=== PATIENT | female | born 1935 | race Caucasian/White ===

== ENCOUNTER 2018-05-04 16:15 | Emergency (ER) | payer MEDICAID ==
[~2018-05-04] VITALS: Ht 162.6 cm; Wt 81.6 kg
[2018-05-04 16:30] VITALS: Ht 162.6 cm; Wt 81.6 kg
[2018-05-04 17:21] LABS: BASOPHIL % 0.4 % (0-2); PLATELET COUNT 254 x10^3mcL (130-400)
[2018-05-04 17:29] LABS: CALCIUM 8.7 mg/dL (8.5-10.1); CHLORIDE SERUM 105 mmol/L (98-107); CREATININE SERUM 0.9 mg/dL (0.6-1.0); GLUCOSE SERUM 160 mg/dL (74-106); POTASSIUM SERUM 3.5 mmol/L (3.5-5.1); SODIUM SERUM 139 mmol/L (136-145)
[2018-05-04 17:35] LABS: ALBUMIN 3.7 g/dL (3.4-5.0); ALKALINE PHOSPHATASE 103 U/L (46-116); ALT/SGPT 32 U/L (14-59); AST/SGOT 22 U/L (15-37); BILIRUBIN TOTAL 0.29 mg/dL (0.20-1.00); HDL CHOLESTEROL 36 mg/dL (40-60); MAGNESIUM 1.5 mg/dL (1.8-2.4); TOTAL PROTEIN, SERUM 7.8 g/dL (6.4-8.2)
[2018-05-04 17:36] LABS: CHOLESTEROL 96 mg/dL (<200)
[2018-05-04 20:56] VITALS: BP 128/65
== END 2018-05-04 20:56 | disposition home or self-care (01) ==
LOC: ED 16:15
PROVIDERS: Emergency Medicine
DX: R53.1 Weakness (principal); R42 Dizziness and giddiness; E83.42 Hypomagnesemia; I10 Essential (primary) hypertension; E11.9 Type 2 diabetes mellitus without complications; E78.00 Pure hypercholesterolemia, unspecified
CPT/HCPCS: J3475; Q0092

== ENCOUNTER 2018-07-21 21:41 | Inpatient (IN) | payer MEDICAID ==
[~2018-07-21] VITALS: Ht 160 cm; Wt 75.3 kg
[2018-07-21 22:11] VITALS: Ht 160 cm; Wt 75.3 kg
--- NOTE | 2018-07-21 23:27 | NUR ---
PT CAME INTO ER WITH DAUGHTER COMPLAINING OF DIZZINESS. PT STATED THAT SHE WAS GOING TO LAY IN BED WHEN SHE STARTED TO FEEL DIZZY. SHE SAID SHE HAS FELT THIS IN THE PAST. PT WAS NOT DOING ANYTHING DIFFERENT FROM HER DAILY ROUTINE. PT HARD OF HEARING. PT'S DAUGHTER STATED THAT THE LAST TIME SHE CAME TO THE ER FOR THE SAME ISSUE AND THAT SHE WAS TOLD THAT HER MOTHER HAD "HIGH POTASSIUM". WILL CONTINUE TO MONITOR.
[2018-07-22 00:03] LABS: CALCIUM 9.4 mg/dL (8.5-10.1); CHLORIDE SERUM 103 mmol/L (98-107); CREATININE SERUM 0.9 mg/dL (0.6-1.0); GLUCOSE SERUM 169 mg/dL (74-106); POTASSIUM SERUM 3.8 mmol/L (3.5-5.1); SODIUM SERUM 142 mmol/L (136-145)
[2018-07-22 00:12] LABS: ALKALINE PHOSPHATASE 93 U/L (46-116); ALT/SGPT 50 U/L (14-59); AMYLASE 37 U/L (25-115); AST/SGOT 30 U/L (15-37); BILIRUBIN TOTAL 0.3 mg/dL (0.20-1.00); LIPASE 144 IU/L (73-393); MAGNESIUM 1.6 mg/dL (1.8-2.4); TOTAL PROTEIN, SERUM 8.2 g/dL (6.4-8.2)
[2018-07-22 00:17] LABS: BASOPHIL % 0.2 % (0-2); PLATELET COUNT 238 x10^3mcL (130-400); RED CELL DISTRIBUTION WIDTH 14.2 % (11.5-14.5)
[2018-07-22] MEDS ORDERED: NEU300 (01:39)
[2018-07-22] MEDS ORDERED: METFORMIN HYDR500 M1 (01:39)
[2018-07-22] MEDS ORDERED: MECLIZINE HYDRO25 M1 (01:40)
[2018-07-22] MEDS ORDERED: NOR10 (01:40)
[2018-07-22] MEDS ORDERED: COZAAR100 MG (01:40)
[2018-07-22 01:41] LABS: T3 TOTAL 0.94 ng/mL
[2018-07-22] MEDS ORDERED: GOOD SENSE ASPI81 M3 (01:41)
[2018-07-22] MEDS ORDERED: TOPROL XL25 MG (01:41)
--- NOTE | 2018-07-22 02:00 | NUR ---
RECIEVED PT FROM ED ON GURNEY. ACCOMPANIED BY RN AND FAMILY. ADMITTED WITH CC OF N/V AND DIZZINESS. AMBULATED TO BED WITH ASSIST. REPORTS DIZZINESS WITH MOVEMENT. CHINESE SPEAKING ONLY. TRANSLATION PROVIDED BY [id number], SHAE. MS WITH NO TELE PER MD ORDERS. NO RESP DISTRESS OR CHEST PAIN. BREATHING 2L NC SPO2 98%. IV TO RT FOREARM INFUSING REMAINDER OF MAG SULFATE (INITIATED IN ED). ORIENTED TO DEVICES AND SURROUNDING. CALL LIGHT IN REACH AND BED ALARM ON.
[2018-07-22 02:19] LABS: FREE T4 0.97 ng/dL (0.76-1.46); FREE THYROXINE INDEX 2.5 ug/dL (1.4-4.5)
[2018-07-22 02:35] LABS: PHOSPHOROUS 4.3 mg/dL (2.5-4.9)
[2018-07-22 02:37] VITALS: BP 154/72
[2018-07-22 02:44] LABS: CHOLESTEROL/HDL RATIO 2.6
--- NOTE | 2018-07-22 05:24 | NUR ---
PT APPEARS TO BE SLEEPING COMFORTABLY. NO DISTRESS NOTED. BREATHING UNLABORED. RT FOREARM IV INTACT WITH NS@100 CC/HR INFUSING. DR. KEARNS CALLED REGARDING AUGUSTIN HUTCHINSON. AUGUSTIN HUTCHINSON ORDERED. CONT TO MONITOR.
--- NOTE | 2018-07-22 05:28 | NUR ---
I HAVE REVIEWED THE DATA COLLECTION BY JANETT (NAME): CATE ROSALES ENTERED ON (DATE/TIME): 07/22/17 0200 I CONCUR WITH THE DATA AND ANY EXCEPTIONS OR COMMENTS ARE LISTED BELOW:
[2018-07-22 06:18] VITALS: BP 136/67
[2018-07-22 07:07] LABS: BASOPHIL % 0.2 % (0-2); PLATELET COUNT 231 x10^3mcL (130-400); RED CELL DISTRIBUTION WIDTH 14.1 % (11.5-14.5)
[2018-07-22 07:14] LABS: CALCIUM 8.4 mg/dL (8.5-10.1); CARBON DIOXIDE 31.3 mmol/L (21-32); CHLORIDE SERUM 105 mmol/L (98-107); CREATININE SERUM 0.8 mg/dL (0.6-1.0); GLUCOSE SERUM 126 mg/dL (74-106); MAGNESIUM 2.2 mg/dL (1.8-2.4); PHOSPHOROUS 4.1 mg/dL (2.5-4.9); POTASSIUM SERUM 3.7 mmol/L (3.5-5.1); SODIUM SERUM 142 mmol/L (136-145)
--- NOTE | 2018-07-22 08:11 | NUR ---
AAO TIMES 4. MANZANITA. LUNGS CTA. NO SOB. O2 SAT ON 2L NC 100% BS'S HYPERACTIVE. NO C/O DIARRHEA AT THIS TIME. PERIPHERAL PULSES PALPABLE. TRACE EDEMA BLE. RIGHT WRIST IV SITE PATENT, CDI. COOPERATIVE. NO C/O PAIN. NO SOB.
[2018-07-22 08:47] VITALS: BP 153/67
[2018-07-22 14:29] VITALS: BP 153/67
--- NOTE | 2018-07-22 14:47 | NUR ---
REMOVED HER IV ANGIO INTACT, SITE CDI. GAVE HER AND HER DAUGHTER DISCHARGE INSTRUCTIONS, NO PRESCRIPTION. BOTH UNDERSTOOD THE INSTRUCTIONS AND TEACHING. COOPERATIVE, AND AAO TIMES 4.
== END 2018-07-22 14:59 | disposition home or self-care (01) | DRG 249 ==
LOC: ED 21:41 → MU 07-22 00:47
PROVIDERS: Emergency Medicine; ADMIT Family Medicine
DX: A08.4 Viral intestinal infection, unspecified (principal); E11.65 Type 2 diabetes mellitus with hyperglycemia; E83.42 Hypomagnesemia; I10 Essential (primary) hypertension
CPT/HCPCS: 82962; 83880; 84439; 87046; 87046-59; 97116-GP; J1885; J2765; J3475; J7030

== ENCOUNTER 2018-11-12 13:50 | Emergency (ER) | payer MEDICAID ==
[~2018-11-12] VITALS: Ht 160 cm; Wt 79.9 kg
[~2018-11-12 13:50] MED LIST: COZAAR100 MG; GOOD SENSE ASPI81 M3; MECLIZINE HYDRO25 M1; METFORMIN HYDR500 M1; NEU300; NOR10; TOPROL XL25 MG
[2018-11-12 13:55] VITALS: Ht 160 cm; Wt 79.9 kg
[2018-11-12 14:55] LABS: BASOPHIL % 0.9 % (0-2); PLATELET COUNT 277 x10^3mcL (130-400); RED CELL DISTRIBUTION WIDTH 14.3 % (11.5-14.5)
[2018-11-12 15:05] LABS: CALCIUM 9.3 mg/dL (8.5-10.1); CARBON DIOXIDE 25.2 mmol/L (21-32); CHLORIDE SERUM 103 mmol/L (98-107); CREATININE SERUM 0.9 mg/dL (0.6-1.0); GLUCOSE SERUM 101 mg/dL (74-106); POTASSIUM SERUM 4.1 mmol/L (3.5-5.1); SODIUM SERUM 140 mmol/L (136-145)
[2018-11-12 15:10] LABS: ALBUMIN 3.8 g/dL (3.4-5.0); ALKALINE PHOSPHATASE 80 U/L (46-116); ALT/SGPT 26 U/L (14-59); AST/SGOT 21 U/L (15-37); BILIRUBIN TOTAL 0.5 mg/dL (0.20-1.00); HDL CHOLESTEROL 41 mg/dL (40-60); MAGNESIUM 1.6 mg/dL (1.8-2.4); PHOSPHOROUS 4.5 mg/dL (2.5-4.9)
[2018-11-12 15:12] LABS: CHOLESTEROL 99 mg/dL (<200)
[2018-11-12 15:36] LABS: microscopic required? NO
[2018-11-12 15:43] LABS: urine erythrocyte NEGATIVE (NEGATIVE)
[2018-11-12 17:43] VITALS: BP 138/70
== END 2018-11-12 17:43 | disposition home or self-care (01) ==
LOC: ED 13:50
PROVIDERS: Emergency Medicine
DX: R53.1 Weakness (principal); E83.42 Hypomagnesemia; I10 Essential (primary) hypertension; E11.9 Type 2 diabetes mellitus without complications; E78.00 Pure hypercholesterolemia, unspecified
CPT/HCPCS: J3475; J7030; Q0092

== ENCOUNTER 2019-04-13 09:35 | Inpatient (IN) | payer MEDICAID ==
[~2019-04-13] VITALS: Ht 160 cm; Wt 79.5 kg
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
--- NOTE | 2019-04-13 10:18 | NUR ---
MEDICATED PER EMAR.
[2019-04-13 10:23] LABS: BASOPHIL % 0.3 % (0-2); PLATELET COUNT 216 x10^3mcL (130-400); RED CELL DISTRIBUTION WIDTH 14.2 % (11.5-14.5)
[2019-04-13 10:31] LABS: CALCIUM 8.6 mg/dL (8.5-10.1); CARBON DIOXIDE 29.6 mmol/L (21-32); CHLORIDE SERUM 105 mmol/L (98-107); CREATININE SERUM 0.8 mg/dL (0.6-1.0); GLUCOSE SERUM 157 mg/dL (74-106); POTASSIUM SERUM 3.7 mmol/L (3.5-5.1); SODIUM SERUM 141 mmol/L (136-145)
--- NOTE | 2019-04-13 10:35 | NUR ---
XRAY AT BEDSIDE.
[2019-04-13 10:36] LABS: ALBUMIN 3.7 g/dL (3.4-5.0); ALKALINE PHOSPHATASE 77 U/L (46-116); ALT/SGPT 25 U/L (14-59); AST/SGOT 26 U/L (15-37); BILIRUBIN TOTAL 0.6 mg/dL (0.20-1.00); LIPASE 95 IU/L (73-393); TOTAL PROTEIN, SERUM 7.2 g/dL (6.4-8.2)
--- NOTE | 2019-04-13 10:36 | NUR ---
PT SPAO2 88-89%. DR. WATKINS MADE AWARE. PT PLACED ON 2L NC SPAO2 97%. WILL CONTINUE TO MONITOR. VSS. RESP E/U.
--- NOTE | 2019-04-13 12:16 | NUR ---
DR. WATKINS REQUESTING INCENTIVE SPIROMETER. PLACED AT BEDSIDE FOR DR. WATKINS EVALUATION.
--- NOTE | 2019-04-13 13:31 | NUR ---
PT TAKEN TO CT.
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
--- NOTE | 2019-04-13 15:34 | NUR ---
PT LAYING COMFORTABLY IN GURNEY, AWAKE AND ALERT, FAMILY AT BEDSIDE. PT CURRENTLY WORKING IN INCENTIVE SPIROMETER.
--- NOTE | 2019-04-13 17:19 | NUR ---
REPORT GIVEN TO ZAY CEDILLO TO ASSUME CARE OF PT.
[2019-04-13 17:56] VITALS: BP 144/70
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
[2019-04-13 18:30] LABS: CHOLESTEROL/HDL RATIO 2.5
--- NOTE | 2019-04-13 19:30 | NUR ---
REPORT GIVEN TO NGUYEN IVAN. PATIENT LYING SUPINE, NO DISTRESS NOTED, [id number] AT BEDSIDE, 2L NC, BED LOW, CALL LIGHT WITHIN REACH. ENDORSED NEED FOR DIET ORDER WELL MED REC FAMILY JUST BROUGHT LIST. IV TO RAC WITHOUT COMPLICATIONS. CARE ENDORSED.
[2019-04-13 20:40] VITALS: BP 128/61
[2019-04-13] MEDS ORDERED: SIMVASTATIN20 M1 PO (20:55)
--- NOTE | 2019-04-13 21:30 | NUR ---
PT COMPLAINING OF 6/10 L CHEST PAIN. MEDICATED WITH PRN NORCO. WILL CONTINUE TO MONITOR.
--- NOTE | 2019-04-13 23:00 | NUR ---
PT O2 WEANED TO 1L. PT TOLERATING WELL. SPO2 95%. WILL CONTINUE TO MONITOR.
--- NOTE | 2019-04-14 00:25 | NUR ---
PT RESTING IN BED AT THIS TIME. BREATHING E/U ON 1L NC. NO S/S OF PAIN OR DISTRESS AT THIS TIME. BED AT LOWEST POSITION. CALL LIGHT WITHIN REACH. WILL CONTINUE TO MONITOR.
--- NOTE | 2019-04-14 00:28 | NUR ---
PT WEANED TO 0L NC. PT SPO2 DROPPED TO 85%. MADE AWARE. PT PLACED BACK ON 1L. TOLERTATING WELL. SP02 95%.
[2019-04-14 05:07] VITALS: BP 120/56
--- NOTE | 2019-04-14 06:36 | NUR ---
PT RESTING IN BED AT THIS TIME. BREATHING E/U ON 1L NC. DENIES PAIN OR DISCOMFORT AT THIS TIME. NO SIGNS OF ACUTE DISTRESS NOTED. ALL NEEDS AND CONCERNS ADDRESSED THIS SHIFT. BED AT LOWEST POSITION. CALL LIGHT WITHIN REACH. WILL ENDORSE TO DAY NURSE.
[2019-04-14 07:11] LABS: BASOPHIL % 0.6 % (0-2); PLATELET COUNT 226 x10^3mcL (130-400); RED CELL DISTRIBUTION WIDTH 14.4 % (11.5-14.5)
[2019-04-14 07:53] LABS: CALCIUM 8.5 mg/dL (8.5-10.1); CARBON DIOXIDE 29.5 mmol/L (21-32); CHLORIDE SERUM 108 mmol/L (98-107); CREATININE SERUM 0.7 mg/dL (0.6-1.0); GLUCOSE SERUM 92 mg/dL (74-106); POTASSIUM SERUM 3.8 mmol/L (3.5-5.1); SODIUM SERUM 145 mmol/L (136-145)
--- NOTE | 2019-04-14 08:00 | NUR ---
SHE WAS MOVED FROM THE B BED TO THE A BED SO THAT AN OXGEN EXTENSION COULD BE PLACED ON HER TUBING FOR BRP.
--- NOTE | 2019-04-14 08:15 | NUR ---
AAO TIMES 4. TELE # 12 1ST DEGREE AVB. LUNGS CTA. O2 SAT ON 2L NC 96%. MOVED TO THE A BED WITH O2 EXTENSION TO REACH BRP WEARING O2. PER NOC SHIFT SHE DESATURATES WITHOUT O2 AMBULATING TO BRP. IV SITE CDI. COOPERATIVE. ECHYMOSIS TO LEFT BREAST AND RIGHT ABDOMINAL AREA, ALSO RIGHT HAND ECYMOSIS AND SLIGHT SWELLING. PERIPHERAL PULSES PALPABLE, NO PEDAL EDEMA.
[2019-04-14 08:36] LABS: UA SPECIFIC GRAVITY 1.015 (1.005-1.035); microscopic required? YES; urine erythrocyte NEGATIVE (NEGATIVE)
[2019-04-14 08:45] VITALS: BP 121/53
[2019-04-14 08:56] LABS: AMPHETAMINE QUAL UR NEGATIVE (See below)
--- NOTE | 2019-04-14 11:13 | NUR ---
TELE MONITOR CALLED ME TO TELL ME HER O2 SAT WAS 67, SHE WAS WALKING WITH PT WITHOUT O2 ON. WE PLACED HER BACK IN BED, WITH O2 2L NC, AND TOLD HER TO TAKE DEEP BREATHES, HER OXYGEN WENT UP TO 100%/. PT SAID THEY WILL USE OXYGEN NEXT TIME WHEN SHE WALKS HER.
[2019-04-14 13:27] VITALS: BP 132/62
--- NOTE | 2019-04-14 15:03 | NUR ---
I TALKED WITH DR YEBOAH ABOUT PATIENT'S UA AND HER OXYGEN DROPPING WITH ACTIVITY TO ABOUT 70% OR SO. HE SAID HE WOULD LOOK AT HER UA AND HE WOULD ORDER DR TURCIOS CONSULTATION.
[2019-04-14 15:17] VITALS: BP 132/62
[2019-04-14 16:54] VITALS: BP 138/66
--- NOTE | 2019-04-14 17:26 | NUR ---
C/O NAUSEA AND VOMITING. ZOFRAN 4 MG IVP WAS GIVEN AT 1333. AT 1503 IT STARTED WORKING TO STOP HER N/V.
--- NOTE | 2019-04-14 18:11 | NUR ---
AAO TIMES 4. TELE # 12 SR WITH 1ST DEGREE AVB. NO C/O PAIN. COOPERATIVE AND PLEASANT. SHE IS USING HER IS. SL TO RAC. FAMILY WAS PRESENT MOST OF THE DAY, CARING AND CONCERNED. O2 2L NC.
--- NOTE | 2019-04-14 19:20 | NUR ---
REC'D PT FROM DAY NURSE. PT RESTING IN BED. AAOX4, SPEECH CLEAR, FOLLOWS COMMANDS. 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 TELE 12. DENIES CP, DIZZINESS, OR PALPITATIONS. DENIES RESP DISTRESS OR SOB. BREATHING EVEN/UNLABORED ON 2L O2 VIA NC, SPO2 100%. 02 REDUCED TO 1L, SPO2 99%. TRACE EDEMA BLE, SCDS IN PLACE. ABD SOFT/ROUND/NONTENDER. REPORTS MILD NAUSEA, TOLERABLE AT THIS TIME AND DECLINED MEDICATION. VOIDING FREELY. GEN WEAKNESS. AMB WITH ASSIST. ECCHYMOSIS TO L BREAST AND R ABD. NO OPEN WOUNDS OR LESIONS. DENIES PAIN AT THIS ITME. IV TO RAC FLUSHED AND PATENT, SITE WNL. CALL LIGHT WITHIN REACH, BED AT LOWEST POSITION. WILL CONTINUE TO MONITOR.
[2019-04-14 20:35] VITALS: BP 139/88
--- NOTE | 2019-04-15 01:27 | NUR ---
PT RESTING IN BED WITH EYES CLOSED. BREATHING EVEN/UNLABORED ON 1L O2 VIA NC. NO S/SX OF PAIN NOTED. AWAKENS WITH VERBAL STIMULI. ROCEPHIN GIVEN FOR UTI. EXPLAINED WITH ASSISTANCE FROM MOBILE DEVICE DEVELOPER, DANIEL. PT VERBALIZED UNDERSTANDING. CALL LIGHT WITHIN REACH, BED AT LOWEST POSITION. WILL CONTINUE TO MONITOR.
[2019-04-15 05:16] VITALS: BP 125/55
--- NOTE | 2019-04-15 05:39 | NUR ---
PT AWAKE AND RESTING IN BED. DENIES ANY RESP DISTRESS, NAUSEA, OR PAIN. BREATHING EVEN/UNLABORED ON 2L O2 VIA NC, SPO2 94%. NO SIGNIFICANT CHANGES DURING SHIFT. CALL LIGHT WITHIN REACH, BED AT LOWEST POSITION, BED ALARM ON. WILL ENDORSE TO DAY NURSE.
[2019-04-15 06:55] LABS: BASOPHIL % 0.3 % (0-2); PLATELET COUNT 253 x10^3mcL (130-400); RED CELL DISTRIBUTION WIDTH 14.2 % (11.5-14.5)
[2019-04-15 07:00] LABS: CALCIUM 8.7 mg/dL (8.5-10.1); CARBON DIOXIDE 30.4 mmol/L (21-32); CHLORIDE SERUM 104 mmol/L (98-107); CREATININE SERUM 0.8 mg/dL (0.6-1.0); GLUCOSE SERUM 121 mg/dL (74-106); MAGNESIUM 1.7 mg/dL (1.8-2.4); PHOSPHOROUS 3.6 mg/dL (2.5-4.9); POTASSIUM SERUM 3.7 mmol/L (3.5-5.1); SODIUM SERUM 143 mmol/L (136-145)
--- NOTE | 2019-04-15 07:50 | NUR ---
PATIENT RESTING IN BED, NO ACUTE DISTRESS NOTED. PATIENT DENIES SOB, LUNG SOUNDS CTA, WITH FINE CRACKLES TO RLL. PATIENT ON 1L NC. PATIENT IS A/OX4, DENIES HEADACHE & DIZZINESS. PATIENT USES NUNU HEARING AIDS. TELE MONITOR IN PLACE. NO EDEMA NOTED. PATIENT STATES SHE HAD SMALL BM, AND UNABLE TO HAVE COMPLETE BM. WILL GIVE PATIENT COLACE PER PROTOCOL FOR CONSTIPATION. PATIENT IS AMBULATORY, WITH ASSISTACE IN GETTING OUT OF BED. PATIENT C/O MILD PAIN, PATIENT STATES PAIN IS TOLERABLE, AND INCREASES WITH MOVEMENT. WILL CONTINUE TO MONITOR AND MANAGE PAIN. IV TO RAC, CDI& PATENT, NO S/S OF INFILTRATION. CALL LIGHT WITHIN REACH, BED IN LOW POSITION, WILL CONTIUE TO MONITOR.
[2019-04-15 07:55] VITALS: BP 122/57
--- NOTE | 2019-04-15 10:00 | NUR ---
DR. YEBOAH AWARE PATIENTS MAG WAS 1.7. NO FURTHER ORDERS AT THIS TIME, WILL CONTINUE TO MONITOR.
--- NOTE | 2019-04-15 11:40 | NUR ---
PATIENT RESTING IN BED, FAMILY AT BEDSIDE. PATIENT DENIES PAIN, NO ACUTE DISTRESS NOTED. DENIES SOB, PATIENT ON 1.5L NC. PATIENT REFUSED INSULIN, BLOOD SUGAR WAS 157. PATIENT STATED SHE ATE AN HOUR BEFORE AND DOES NOT NEED INSULIN. CALL LIGHT WITHIN DEVEN, BED IN LOW POSITION.
[2019-04-15 11:50] VITALS: BP 111/52
--- NOTE | 2019-04-15 13:20 | NUR ---
PATIENT SITTING UP IN BED EATING, PATIENT TOLERATING MEAL. PATIENT DENIES PAIN & SOB. PATIENT REMINDED TO USE INCENTIVE SPIROMETER X10/Q1H, PATIENT VERBALIZE UNDERSTANDING. ALL NEEDS MET AT THIS TIME, CALL LIGHT WITHIN REACH.
[2019-04-15 16:20] VITALS: BP 125/60
--- NOTE | 2019-04-15 18:10 | NUR ---
PATIENT RESTING IN BED, CONVERSING WITH FAMILY. NO ACUTE DISTRESS NOTED. ALL QUESTIONS AND CONCERNS ADDRESSED. ALL NEED MET. IV TO TO RAC SALINE LOCK. CALL LIGHT WITHIN.
--- NOTE | 2019-04-15 19:20 | NUR ---
REC'D PT FROM DAY NURSE. FAMILY AT BEDSIDE. PT RESTING IN BED. AAOX4, SPEECH CLEAR, FOLLOWS COMMANDS. TELE 12. DENIES CP, DIZZINESS, OR PALPITATIONS. NO EDEMA NOTED. DENIES RESP DISTRESS OR SOB. BREATHING EVEN/UNLABORED ON 2L O2 VIA NC, SPO2 96%. NO COUGH NOTED. ABD SOFT/ROUND/NONTENDER. VOIDING FREELY. AMBULATORY WITH ASSIST. PURPLE ECCHYMOSIS TO R ABD AND L CHEST/BREAST MANAGER SWITCH. REPORTS MINIMAL PAIN TO L CHEST AREA BUT TOLERABLE AND DENIED PAIN MEDS. IV TO RAC FLUSHED AND PATENT, SITE WNL. CALL LIGHT WITHIN REACH, BED AT LOWEST POSITION. WILL CONTINUE TO MONITOR.
[2019-04-15 20:25] VITALS: BP 128/59
--- NOTE | 2019-04-15 21:01 | NUR ---
PT C/O 4-5 L CHEST/BREAST PAIN. TORADOL GIVEN PER ORDER. WILL MONITOR FOR RELIEF.
[2019-04-15 21:18] VITALS: Ht 160 cm; Wt 79.5 kg
--- NOTE | 2019-04-16 00:11 | NUR ---
PT RESTING IN BED WITH EYES CLOSED. NO SIGNS OF DISTRESS OR PAIN NOTED. BREATHING EVEN/UNLABORED ON 1L O2 VIA NC, SPO2 94%. CALL LIGHT WITHIN REACH, BED AT LOWEST POSITION. WILL CONTINUE TO MONITOR.
[2019-04-16 05:16] VITALS: BP 115/57
--- NOTE | 2019-04-16 06:04 | NUR ---
PT RESTING IN BED WITH EYES CLOSED. BREATHING EVEN/UNLABORED ON 1L O2 VIA NC, SPO2 94%. AWAKENS WITH VERBAL STIMULI. PT DENIES PAIN AT THIS TIME. PT WILL DESAT TO HIGH 80'S ON RA. NO SIGNIFICANT CHANGES DURING SHIFT. CALL LIGHT WITHIN REACH, BED AT LOWEST POSITION. WILL ENDORSE TO DAY NURSE.
[2019-04-16 06:27] LABS: BASOPHIL % 0.4 % (0-2); PLATELET COUNT 255 x10^3mcL (130-400); RED CELL DISTRIBUTION WIDTH 14.2 % (11.5-14.5)
[2019-04-16 06:30] LABS: CALCIUM 8.3 mg/dL (8.5-10.1); CARBON DIOXIDE 30.1 mmol/L (21-32); CHLORIDE SERUM 105 mmol/L (98-107); CREATININE SERUM 0.8 mg/dL (0.6-1.0); GLUCOSE SERUM 108 mg/dL (74-106); MAGNESIUM 1.9 mg/dL (1.8-2.4); PHOSPHOROUS 4.3 mg/dL (2.5-4.9); POTASSIUM SERUM 3.9 mmol/L (3.5-5.1); SODIUM SERUM 142 mmol/L (136-145)
--- NOTE | 2019-04-16 07:15 | NUR ---
SEEN WALKING BACK FROM THE BATHROOM AWAE, ALERT, ORIENTED X3. WELSH SPEAKING. NO SOB NOTED, O2 1LPM N /C MAINTAINED, O2SAT NOTED 92% DENIES CHEST PAIN OR DIZZINESS AT THIS TIME. S/L TO LFA INTACT AND PATENT. ON [facility] DIET. PLAN OF CARE INFORMED, CALL LIGHT PLACED WITHIN EASY REACH. SIDERAILS UP X2.
[2019-04-16 07:48] VITALS: BP 137/47
--- NOTE | 2019-04-16 08:58 | NUR ---
AM SCHEDULED MEDS GIVEN. TORADOL 15MG IVP GIVEN FOR LT BREAST/RLQ ABDOMEN ECHYMOSIS PAIN. WILL CONTINUE TO MONITOR.
[2019-04-16 11:49] VITALS: BP 121/60
--- NOTE | 2019-04-16 14:36 | NUR ---
SEEN WALKING ON THE HALLWAY ASSISTED BY RT, O2 N/C MAINTAINED.
--- NOTE | 2019-04-16 15:13 | NUR ---
Discount pharmacy card and list to low cost medical clinics given to patient by Kevon.
[2019-04-16 16:27] VITALS: BP 125/60
--- NOTE | 2019-04-16 18:46 | NUR ---
NO ANY DISTRESS THROUGHOUT SHIFT. TORADOL IV GIVEN X1 FOR LT BREAST PAIN WITH GOOD RELIEF. BRP WITH MINIMAL ASSISTANCE. GOOD APPETITE.
--- NOTE | 2019-04-16 19:25 | NUR ---
RECEIVED REPORT FROM DASHA CEDILLO. AVA ALL [facility]
--- NOTE | 2019-04-16 19:40 | NUR ---
RECEIVED PT LAYING IN BED. PT IS A/OX4. SPEECH IS CLEAR. ABLE TO MAKE NEEDS KNOWN/FOLLOW COMMANDS. DENIES DOVE. EENT FREE OF DISCHARGE. ORAL MUCOSA PINK AND MOIST. NO JVD NOTED. PT IS [place]. BREATHING IS E/U ON 1 LPM VIA NC. LUNGS SOUND CLEAR TO BUL AND DIMIN TO BLL. SYMMETRICAL CHEST EXPANSION NOTED. PT O2 SATURATION 95%. PT ON TELE #12. S1/S2 HEART SOUNDS AUSCULTATED. CHEST WALL EQUAL AND SYMMETRICAL. DENIES ANY CP. HR 67. PALPABLE PULSES X4 EXTREMITIES. SKIN IS WARM AND DRY. NO EDEMA NOTED. CAP REFILL < [address]FA IV IN PL[address], SALINE LOCKED. GENERALIZED WEAKNESS. PT ABLE TO AMBULATE TO RESTROOM WITH ASSISTANCE. NO JOINT SWELLING/DEFORMITY NOTED. PT ON CCHO DIET. DENIES ANY N/V. ABD IS SOFT/ROUND/NONTENDER TO PALPATION. BOWEL SOUNDS ACTIVE X4 QUADRANTS. NO BM NOTED. PT VOIDS FREELY. NO LABIAL EDEMA/VAGINAL DISCHARGE NOTED. SKIN IS INTACT. ECCHYMOSIS NOTED TO RIGHT SIDED ABD AND LEFT BREAST. PT ABLE TO REPOSITION SELF INDEPENDENTLY. PT IS CALM AND COOPERATIVE. FAMILY AT BEDSIDE. BED IN LOW POSITION. CALL LIGHT IN REACH. WILL CONT TO MONITOR
--- NOTE | 2019-04-16 19:47 | NUR ---
PT C/O ACHING LEFT-SIDED BREAST PAIN RATED 6/10. PT MEDICATED WITH NORCO PER EMAR
[2019-04-16 20:24] VITALS: BP 141/62
--- NOTE | 2019-04-16 23:05 | NUR ---
PT IS SLEEPING, EASILY AROUSABLE. RISE AND FALL OF CHEST NOTED. NO S/S OF ACUTE DISTRESS NOTED. WILL CONT TO MONITOR
--- NOTE | 2019-04-17 02:09 | NUR ---
PT IS SLEEPING EASILY AROUSABLE. RISE/FALL OF CHEST SYMMETRIC. NO S/S OF DISTRESS NOTED. CALL LIGHT IN REACH. WILL CONT TO MONITOR
--- NOTE | 2019-04-17 05:20 | NUR ---
PT IS AWAKE/ALERT. DENIES ANY PAIN AT THIS TIME. LFA IV IS INTACT/SECURED, SALINE LOCKED. BREATHING IS E/U ON ROOM AIR. NO S/S OF DISTRESS NOTED. WILL CONT TO MONITOR
[2019-04-17 05:21] VITALS: BP 133/66
--- NOTE | 2019-04-17 05:51 | NUR ---
PT AMBULATED TO THE RESTROOM WITH A STEADY GAIT
[2019-04-17 06:35] LABS: BASOPHIL % 0.7 % (0-2); PLATELET COUNT 237 x10^3mcL (130-400); RED CELL DISTRIBUTION WIDTH 14.1 % (11.5-14.5)
--- NOTE | 2019-04-17 07:03 | NUR ---
REPORT GIVEN TO DASHA CEDILLO FOR CONTINUITY OF CARE. ALL QUESTIONS/CONCERNS ADDRESSED. ENDORSING ALL CARE
--- NOTE | 2019-04-17 07:05 | NUR ---
SEEN RESTING WITH EYES CLOSED. NO RESP DISTRESS. ON O2 1LPM N/C, O2SAT NOTED 93%. ON TELE# 12 NSR WITH 1 AVB. GEN BODY WEAKNESS. S/L TO LFA INTACT AND PATENT. CALL LIGHT NOTED WITHIN EASY REACH. SIDERAILS UP X2.
[2019-04-17 07:36] LABS: CALCIUM 8.6 mg/dL (8.5-10.1); CARBON DIOXIDE 31.1 mmol/L (21-32); CHLORIDE SERUM 106 mmol/L (98-107); CREATININE SERUM 0.6 mg/dL (0.6-1.0); GLUCOSE SERUM 105 mg/dL (74-106); MAGNESIUM 1.7 mg/dL (1.8-2.4); PHOSPHOROUS 4.3 mg/dL (2.5-4.9); POTASSIUM SERUM 4.8 mmol/L (3.5-5.1); SODIUM SERUM 143 mmol/L (136-145)
[2019-04-17 07:59] VITALS: BP 126/60
--- NOTE | 2019-04-17 08:30 | NUR ---
SITTING UP IN BED HAVING BREAKFAST, BREATHING E/U ON O2 1LPM N/C AT THIS TIME.
--- NOTE | 2019-04-17 09:16 | NUR ---
TORADOL 15MG IVP GIVEN FOR LEFT BREAST PAIN, WILL CONTINUE TO MONITOR.
--- NOTE | 2019-04-17 10:00 | NUR ---
RESTING WITH EYES CLOSED. NO ANY DISTRESS NOTED.
[2019-04-17 11:53] VITALS: BP 121/80
--- NOTE | 2019-04-17 15:00 | NUR ---
RESTING IN BED WATCHING TV. STATED PAIN IS TOLERABLE.
[2019-04-17 16:13] VITALS: BP 130/64
[2019-04-17 20:15] VITALS: BP 128/70
--- NOTE | 2019-04-17 22:18 | NUR ---
PATIENT RECEIVED RESTING IN BED. ALERT, ORIENTED X4. [place] CITIZ[place] SPEAKING. HARD OF HEARING BOTH EARS. RESPIRATION EVEN AND UNLABORED, ON O2 1L PER NASAL CANNULA. SALINE LOCK TO LT FA PATENT AND INTACT. DENIES CHEST DISCOMFORT. VOIDING FREELY WITHOUT DIFFICULTY. GENERALIZED WEAKNESS TO EXTREMITIES. ECCHYMOSIS ON RT ABDOMEN AND LT BREAST. C/O GENERALIZED PAIN, 11/24. TORADOL 15 MG IVP GIVEN AT 2051. TELE #12. WILL CONTINUE TO MONITOR.
[2019-04-18 05:33] VITALS: BP 137/59
--- NOTE | 2019-04-18 06:37 | NUR ---
PATIENT RESTING IN BED. RESPIRATION EVEN AND UNLABORED, ON O2 1L PER NASAL CANNULA. DENIES PAIN AT THIS TIME. ASSISTED WITH NEEDS. SAFETY OBSERVED. PLACED BED IN THE LOWEST POSITION. PLACED CALL LIGHT WITHIN REACH AT ALL TIMES.
--- NOTE | 2019-04-18 08:15 | NUR ---
A&OX4, COOPERATES WELL. ON NC 1L, O2 SAT 96%, CTA BILATERALLY. TELE#12, NSR/ FIRST DEGREE AVB, PERIPHERAL PULSES PALPABLE, NO EDEMA, NORMAL CAP REFILL, NORMOACTIVE BSX4. GENERALIZED WEAKNESS, BRP W/ ASSIST. ECCHYMOSIS ON LEFT BREAST AND RIGHT ABD. NO C/O PAIN. FALL PRECAUTIONS, W/ YELLOW SOCKS, STAR OUTSIDE OF ROOM, BED AT LOW POSITION, CALL LIGHT WITHIN REACH.
[2019-04-18 09:13] VITALS: BP 140/63
[2019-04-18] MEDS ORDERED: LEVAQUIN750 MG PO (14:58)
[2019-04-18 16:13] VITALS: BP 140/63
[2019-04-18 17:17] VITALS: BP 118/59
[2019-04-18 18:00] VITALS: BP 118/59
--- NOTE | 2019-04-18 18:17 | NUR ---
A&OX4, COOPERATES WELL. [place] SPEAKING ONLY. HARD OF HEARING, W/ HEARING AIDS BILATERALLY. TELE #12, NSR W/ 1ST DEGREE AV BLOCK. PERIPHERAL PULSES PALPABLE W/ NO TRACE OF EDEMA. LUNG SOUNDS CTA BILATERALLY, CURRENTLY ON 1L NC W/ O2 SAT 96%. NORMOACTIVE BOWEL SOUNDS X4. BRP W/ MINIMAL ASSIST AND HAS GENERALIZED WEAKNESS. ECCHYMOSIS PRESENT ON RIGHT ABD AND L BREAST. LEFT FOREARM IV SITE SALINE LOCKED. PLAN FOR DISCHARGE.
--- NOTE | 2019-04-18 18:53 | NUR ---
NURSING CO-SIGN THE DOCUMENTATION ENTERED BY THE IP HAS BEEN REVIEWED. REVIEWED/CO-SIGNED BY: Khloe Starks DOCUMENTATION DONE BY: GERDA STARKS
--- NOTE | 2019-04-18 20:00 | NUR ---
PT RECIEVED FROM DAY NURSE. PT RESTING IN BED AT THIS TIME. DENIES PAIN OR DISCOMFORT. BREATHING E/U ON 1L NC. PT DAUGHTER IN LAW AT BEDSIDE. EDUCATED PT ON USE OF HOME OXYGEN. ALL PAPERWORK COMPLETED AT THIS TIME. PT AND PT DAUGHTER IN LAW VERBALIZED UNDERSTANDS. STATED NO QUESTIONS AND CONCERNS AT THIS TIME. PT REFUSED ALL NIGHT TIME MEDICATION. EDUCATED ON USE AND NEED FOR MEDICATIONS. PT CONTINUED TO REFUSE. ARM BAND REMOVED, TELE REMOVED AND RETURNED. PT ESCORTED VIA WHEELCHAIR BY GEOMAGNETIST TO LOBBY WITH DAUGHTER IN LAW.
== END 2019-04-18 20:00 | disposition home or self-care (01) | DRG 135 ==
LOC: ED 09:35 → DU 16:43
PROVIDERS: Emergency Medicine; Radiology Diagnostic Radiology; ADMIT General Practice
DX: S27.321A Contusion of lung, unilateral, initial encounter (principal); N17.0 Acute kidney failure with tubular necrosis; J96.01 Acute respiratory failure with hypoxia; J18.9 Pneumonia, unspecified organism; E11.65 Type 2 diabetes mellitus with hyperglycemia; I10 Essential (primary) hypertension; E78.5 Hyperlipidemia, unspecified; J98.11 Atelectasis; N39.0 Urinary tract infection, site not specified; S69.81XA Other specified injuries of right wrist, hand and finger(s), initial encounter; V43.62XA Car passenger injured in collision with other type car in traffic accident, initial encounter; Y93.89 Activity, other specified; Y92.414 Local residential or business street as the place of occurrence of the external cause; Z68.30 Body mass index [BMI] 30.0-30.9, adult; Z79.84 Long term (current) use of oral hypoglycemic drugs
CPT/HCPCS: 82962; 83880; 85378; 94150; 97112-GP; 97116-GP; 97530-GP; G0378; J0696; J1644; J1885; J2405; J3475; J7050; J7060; J7620; J7644; Q0092; Q0162; Q9967

== ENCOUNTER 2019-08-26 14:26 | Emergency (ER) | payer MEDICAID ==
[~2019-08-26] VITALS: Ht 160 cm; Wt 79.4 kg
[~2019-08-26 14:26] MED LIST changes: +LEVAQUIN750 MG PO; +SIMVASTATIN20 M1 PO
[2019-08-26 14:34] VITALS: Ht 160 cm; Wt 79.4 kg
[2019-08-26 15:33] LABS: BASOPHIL % 0.2 % (0-2); PLATELET COUNT 263 x10^3mcL (130-400); RED CELL DISTRIBUTION WIDTH 13.8 % (11.5-14.5)
[2019-08-26 15:44] LABS: CALCIUM 8.9 mg/dL (8.5-10.1); CARBON DIOXIDE 30.6 mmol/L (21-32); CHLORIDE SERUM 105 mmol/L (98-107); CREATININE SERUM 0.7 mg/dL (0.6-1.0); GLUCOSE SERUM 111 mg/dL (74-106); POTASSIUM SERUM 4.3 mmol/L (3.5-5.1); SODIUM SERUM 143 mmol/L (136-145)
[2019-08-26 15:48] LABS: ALBUMIN 3.7 g/dL (3.4-5.0); ALKALINE PHOSPHATASE 87 U/L (46-116); ALT/SGPT 26 U/L (14-59); AST/SGOT 21 U/L (15-37); BILIRUBIN TOTAL 0.3 mg/dL (0.20-1.00); TOTAL PROTEIN, SERUM 7.7 g/dL (6.4-8.2)
[2019-08-26 16:30] VITALS: BP 133/65
== END 2019-08-26 16:31 | disposition short-term general hospital (02) ==
LOC: ED 14:26
PROVIDERS: Emergency Medicine
DX: I63.9 Cerebral infarction, unspecified (principal); E11.9 Type 2 diabetes mellitus without complications; I10 Essential (primary) hypertension; E78.5 Hyperlipidemia, unspecified
CPT/HCPCS: 36415; Q0092